=== PATIENT | female | born 1960 | race Caucasian/White ===

== ENCOUNTER 2021-05-05 17:30 | Inpatient (IN) | payer MEDICARE, MEDICAID ==
[2021-05-05] MEDS ORDERED: Glucose Gel 15 GM in 37.5 GM Tube PO PRN (17:40)
[2021-05-05] MEDS ORDERED: Sodium Chloride 0.9% 10 ML Syringe FLUSH PRN (17:40)
[2021-05-05] MEDS ORDERED: Polyethylene Glycol 3350 Powder 17 GM Packet PO PRN (17:40)
[2021-05-05] MEDS ORDERED: 50% Dextrose in Water 50 ML Syringe IV PRN (17:40)
[2021-05-05] MEDS ORDERED: Acetaminophen 325 MG Tab PO PRN (17:40)
[2021-05-05] MEDS ORDERED: Ondansetron 4 MG/2 ML SDV IV PRN (17:40)
[2021-05-05] MEDS ORDERED: Furosemide 40 MG/4 ML VIAL IVPUSH ONE (17:45)
--- NOTE | 2021-05-05 17:49 | PCM.HP.2 ---
H&P History of Present Illness - General Date of Service: 05/05/21 Admit Problem/Dx: Admission Diagnosis/Problem Admission Diagnosis/Problem CHF, Congestive heart failure Source of Information: Patient, Provider, RN Notes Reviewed History Limitations: Reports: No Limitations - History of Present Illness Initial Comments - Free Text/Narative: Ms. Butler is a 61-year-old woman who was admitted as a direct admission from the emergency department at the [facility] with shortness of breath and hypoxia secondary to congestive heart failure exacerbation. She has a very complicated past medical history and is status post recent non-ST segment elevation myocardial infarction 1 month ago, requiring angioplasty and stent placement. She is on aspirin and Plavix following that intervention. Over the past 2 days has developed progressive increase shortness of breath on evaluation in the emergency department chest x-ray shows evidence of pulmonary edema. She has known congestive heart failure with decreased ejection fraction estimated at 35%. She was also found to be very anemic with a hemoglobin of 6.3. She denies recent hematemesis, melena, hematochezia, and hematuria. Guaiac was obtained while in the emergency department and found to be negative. White blood cell count is within normal range and her troponin was normal. In addition to progressive shortness of breath she reports symptoms of PND and orthopnea. She has known longstanding type 2 diabetes mellitus and is status post bilateral [id number] amputations done for nonhealing ulcers with underlying peripheral arterial disease. She was transfused 2 units of red blood cells from the emergency department in [place]. She continues to report symptoms of shortness of breath. D-dimer was obtained while in the emergency department and was found to be elevated. She is not a candidate for CT scan with contrast because of her chronic kidney disease. Left Chest Pain Score (Numeric/FACES): 8 - Related Data Allergies/Adverse Reactions: Allergies Allergy/AdvReac Type Severity Reaction Status Date / Time bee venom protein (honey bee) Allergy Wheezing Verified 05/05/21 18:14 latex Allergy Wheezing Verified 05/05/21 18:14 peanut Allergy Wheezing Verified 05/05/21 18:14 Home Medications: Home Meds Acetaminophen [Tylenol Extra Strength] 1,000 mg PO TID PRN 05/05/21 [History] Albuterol [Ventolin HFA] 2 puff .XX 6XDAY PRN 05/05/21 [History] Albuterol/Ipratropium [DuoNeb 3.0-0.5 MG/3 ML] 3 ml NEB Q6HR PRN 05/05/21 [History] Amitriptyline [Elavil] 20 mg PO BEDTIME 05/05/21 [History] Aspirin [Adult Low Dose Aspirin EC] 81 mg PO DAILY 05/05/21 [History] Budesonide/Formoterol Fumarate [Symbicort 160-4.5 Mcg Inhaler] 2 puff .XX BID 05/05/21 [History] Calcium Carbonate [Tums] 1,000 mg PO ASDIRECTED PRN 05/05/21 [History] Cholecalciferol (Vitamin D3) [Vitamin D3] 10 mcg PO DAILY 05/05/21 [History] Clopidogrel [Plavix] 75 mg PO DAILY 05/05/21 [History] DULoxetine [Cymbalta] 60 mg PO DAILY PRN 05/05/21 [History] Furosemide [Lasix] 20 mg PO DAILY 05/05/21 [History] Gabapentin [Neurontin] 200 mg PO BEDTIME PRN 05/05/21 [History] Insulin Aspart [Novolog Flexpen] 4 unit SUBCUT WITHMEALSANDBED 05/05/21 [History] Insulin Glarg,Human.Rec.Analog [Lantus Solostar] 35 unit SUBCUT BEDTIME 05/05/21 [History] Insulin Glarg,Human.Rec.Analog [Lantus Solostar] 40 unit SUBCUT ACBREAKFAST 05/05/21 [History] Loperamide HCl [Imodium A-D] 4 mg PO DAILY PRN 05/05/21 [History] Metoprolol Succinate [Toprol XL] 12.5 mg PO DAILY 05/05/21 [History] NIFEdipine [Nifedipine ER] 30 mg PO BEDTIME 05/05/21 [History] Pantoprazole Sodium [Protonix] 40 mg PO DAILY PRN 05/05/21 [History] Pentoxifylline [TRENtal] 400 mg PO BID 05/05/21 [History] Sennosides [Senna] 8.6 mg PO BID PRN 05/05/21 [History] Topiramate [Topamax] 25 mg PO DAILY 05/05/21 [History] atorvaSTATin Calcium [Lipitor] 40 mg PO BEDTIME 05/05/21 [History] H&P Review of Systems - Review of Systems: Review Of Systems: See Below General: Reports: Malaise, Weakness, Fatigue. Denies: Fever, Chills HEENT: Reports: No Symptoms Pulmonary: Reports: Shortness of Breath. Denies: Wheezing, Pleuritic Chest Pain, Cough, Sputum, Hemoptysis Cardiovascular: Reports: Dyspnea on Exertion, Orthopnea, PND. Denies: Chest Pain, Palpitations, Edema, Lightheadedness Gastrointestinal: Reports: No Symptoms Genitourinary: Reports: No Symptoms Musculoskeletal: Reports: No Symptoms Skin: Reports: No Symptoms Psychiatric: Reports: No Symptoms Neurological: Reports: No Symptoms Hematologic/Lymphatic: Reports: No Symptoms Immunologic: Reports: No Symptoms Exam - Exam Exam: See Below - Vital Signs Vital Signs: Last Vital Signs Temp 98.7 F 05/05/21 17:36 Pulse 96 05/05/21 17:36 Resp 16 05/05/21 17:36 BP 126/74 05/05/21 17:36 Pulse Ox 91 L 05/05/21 17:36 - Exam Quality Assessment: Supplemental Oxygen, Urinary Catheter, DVT Prophylaxis General: Alert, Oriented, Cooperative, Moderate Distress HEENT: Conjunctiva Clear, Hearing Intact, Mucosa Moist & [place], Normal Nasal Septum, Posterior Pharynx Clear, Pupils Equal Neck: Supple, Trachea Midline, +2 Carotid Pulse wo Bruit Lungs: Decreased Breath Sounds, Rales. No: Crackles, Rhonchi, Wheezing Cardiovascular: Regular Rate, Regular Rhythm, Normal S1, Normal S2. No: Systolic Murmur, Diastolic Murmur GI/Abdominal Exam: Soft, Non-Tender, No Organomegaly, No Distention Extremities: Other (Bilateral [id number] amputations) Skin: Warm, Dry, Intact Neurological: Cranial Nerves Intact, Strength Equal Bilateral, Normal Speech, Normal Tone, Sensation Intact. No: Focal Deficit Neuro Extensive - Mental Status: Alert, Oriented x3, Normal Mood/Affect, Normal Cognition, Memory Intact Sepsis Event Note - Focused Exam Vital Signs: Vital Signs Temp Pulse Resp BP Pulse Ox 05/05/21 17:36 98.7 F 96 16 126/74 91 L *Q Meaningful Use (ADM) - VTE *Q VTE Mechanical Contraindications *Q: Bilateral Lower Amputee VTE Pharmacological Contraindications *Q: High INR Value - VTE Risk Assess *Q Each Risk Factor Represents 1 Point: Age 41 - 59 years, Congestive heart failure (CHF), Serious lung disease including pneumonia, Abnormal Pulmonary Function (COPD) Total Score 1 Point Risk Factors: 4 Each Risk Factor Represents 2 Points: None Total Score 2 Point Risk Factors: 0 Each Risk Factor Represents 3 Points: None Total Score 3 Point Risk Factors: 0 Each Risk Factor Represents 5 Points: None Total Score 5 Point Risk Factors: 0 Venous Thromboembolism Risk Factor Score *Q: 4 Problem List Initiated/Reviewed/Updated: Yes Orders Last 24hrs: Active Orders 24 hr Category Date Time Status Patient Status [ADT] Routine ADT 05/05/21 17:40 Ordered Communication Order [RC] STAT Care 05/05/21 17:40 Ordered Diabetes Education [RC] Click to Edit Care 05/05/21 17:40 Ordered Height and Weight [RC] DAILY Care 05/05/21 17:40 Ordered Intake and Output [RC] QSHIFT Care 05/05/21 17:40 Ordered Notify Provider Vital Signs [RC] ASDIRECTED Care 05/05/21 17:40 Ordered Notify Provider [RC] PRN Care 05/05/21 17:40 Ordered Oxygen Therapy [RC] PRN Care 05/05/21 17:40 Ordered RT Aerosol Therapy [RC] ASDIRECTED Care 05/05/21 17:44 Ordered Up With Assistance [RC] ASDIRECTED Care 05/05/21 17:40 Ordered Up to Chair [RC] QID Care 05/05/21 17:40 Ordered VTE/DVT Education [RC] Per Unit Routine Care 05/05/21 17:40 Ordered Vital Signs [RC] Q4H Care 05/05/21 17:40 Ordered 2 Gram Sodium Diet [DIET] Diet 05/05/21 Dinner Ordered CBC WITH AUTO DIFF [HEME] AM Lab 05/06/21 05:11 Ordered CBC WITH AUTO DIFF [HEME] Stat Lab 05/05/21 17:48 Ordered COMPREHENSIVE METABOLIC PN,CMP [CHEM] AM Lab 05/06/21 05:11 Ordered FOLIC ACID [CHEM] Routine Lab 05/05/21 17:46 Ordered GLUCOSE POC LAB TO COLLECT JPM [POC] QIDACANDBED Lab 05/05/21 21:00 Ordered GLUCOSE POC LAB TO COLLECT JPM [POC] QIDACANDBED Lab 05/06/21 07:30 Ordered GLUCOSE POC LAB TO COLLECT JPM [POC] QIDACANDBED Lab 05/06/21 11:30 Ordered GLUCOSE POC LAB TO COLLECT JPM [POC] QIDACANDBED Lab 05/06/21 16:30 Ordered GLUCOSE POC LAB TO COLLECT JPM [POC] QIDACANDBED Lab 05/06/21 21:00 Ordered GLUCOSE POC LAB TO COLLECT JPM [POC] QIDACANDBED Lab 05/07/21 07:30 Ordered GLUCOSE POC LAB TO COLLECT JPM [POC] QIDACANDBED Lab 05/07/21 11:30 Ordered GLUCOSE POC LAB TO COLLECT JPM [POC] QIDACANDBED Lab 05/07/21 16:30 Ordered GLUCOSE POC LAB TO COLLECT JPM [POC] QIDACANDBED Lab 05/07/21 21:00 Ordered GLUCOSE POC LAB TO COLLECT JPM [POC] QIDACANDBED Lab 05/08/21 07:30 Ordered GLUCOSE POC LAB TO COLLECT JPM [POC] QIDACANDBED Lab 05/08/21 11:30 Ordered GLUCOSE POC LAB TO COLLECT JPM [POC] QIDACANDBED Lab 05/08/21 16:30 Ordered GLUCOSE POC LAB TO COLLECT JPM [POC] QIDACANDBED Lab 05/08/21 21:00 Ordered GLUCOSE POC LAB TO COLLECT JPM [POC] QIDACANDBED Lab 05/09/21 07:30 Ordered GLUCOSE POC LAB TO COLLECT JPM [POC] QIDACANDBED Lab 05/09/21 11:30 Ordered GLUCOSE POC LAB TO COLLECT JPM [POC] QIDACANDBED Lab 05/09/21 16:30 Ordered GLUCOSE POC LAB TO COLLECT JPM [POC] QIDACANDBED Lab 05/09/21 21:00 Ordered GLUCOSE POC LAB TO COLLECT JPM [POC] QIDACANDBED Lab 05/10/21 07:30 Ordered GLUCOSE POC LAB TO COLLECT JPM [POC] QIDACANDBED Lab 05/10/21 11:30 Ordered GLUCOSE POC LAB TO COLLECT JPM [POC] QIDACANDBED Lab 05/10/21 16:30 Ordered GLUCOSE POC LAB TO COLLECT JPM [POC] QIDACANDBED Lab 05/10/21 21:00 Ordered GLUCOSE POC LAB TO COLLECT JPM [POC] QIDACANDBED Lab 05/11/21 07:30 Ordered GLUCOSE POC LAB TO COLLECT JPM [POC] QIDACANDBED Lab 05/11/21 11:30 Ordered GLUCOSE POC LAB TO COLLECT JPM [POC] QIDACANDBED Lab 05/11/21 16:30 Ordered IRON/TIBC [CHEM] Routine Lab 05/05/21 17:46 Ordered LACTATE DEHYDROGENASE,LDH [CHEM] Routine Lab 05/05/21 17:46 Ordered MAGNESIUM [CHEM] AM Lab 05/06/21 05:11 Ordered RETICULOCYTE COUNT [HEME] Routine Lab 05/05/21 17:46 Ordered VITAMIN B12 [CHEM] Routine Lab 05/05/21 17:46 Ordered Acetaminophen [TylenoL] Med 05/05/21 17:40 Ordered 650 mg PO Q4H PRN Albuterol [Proventil Neb Soln] Med 05/05/21 17:40 Ordered 2.5 mg NEB Q4H PRN Albuterol/Ipratropium [DuoNeb 3.0-0.5 MG/3 ML] Med 05/05/21 22:00 Ordered 3 ml NEB QID Dextrose 50% in Water Med 05/05/21 17:40 Ordered 50 ml IV ONETIME PRN Dextrose [Glutose 15] Med 05/05/21 17:40 Ordered 15 gm PO ONETIME PRN Furosemide [Lasix] Med 05/05/21 17:45 Once 80 mg IVPUSH NOW ONE Insulin Lispro [HumaLOG] Med 05/05/21 20:00 Ordered See Protocol SUBCUT QIDACANDBED Ondansetron [Zofran] Med 05/05/21 17:40 Ordered 4 mg IV Q4H PRN Sodium Chloride 0.9% [Saline Flush] Med 05/05/21 17:40 Ordered 10 ml FLUSH ASDIRECTED PRN polyethylene glycoL 3350 [MiraLAX] Med 05/05/21 17:40 Ordered 17 gm PO DAILY PRN Saline Lock Insert [OM.PC] Routine Oth 05/05/21 17:40 Ordered VTE Mechanical Contraindications [AST] Per Unit Routine Oth 05/05/21 17:40 Ordered VTE Pharmacological Contraindications [AST] Per Unit Oth 05/05/21 17:40 Ordered Routine Resuscitation Status Routine Resus Stat 05/05/21 17:40 Ordered Medication Orders Acetaminophen (Acetaminophen 325 Mg Tab) 650 mg PO Q4H PRN PRN Reason: Pain (Mild 1-3)/fever Albuterol (Albuterol 0.083% 2.5 Mg/3 Ml Neb Soln) 2.5 mg NEB Q4H PRN PRN Reason: Shortness Of Breath/wheezing Albuterol/Ipratropium (Albuterol/Ipratropium 3.0-0.5 Mg/3 Ml Neb Soln) 3 ml NEB QID DANI Dextrose (Glucose Gel 15 Gm In 37.5 Gm Tube) 15 gm PO ONETIME PRN PRN Reason: Hypoglycemia Dextrose/Water (50% Dextrose In Water 50 Ml Syringe) 50 ml IV ONETIME PRN PRN Reason: Hypoglycemia Furosemide (Furosemide 40 Mg/4 Ml Vial) 80 mg IVPUSH NOW ONE Stop: 05/05/21 17:46 Insulin Human Lispro (Insulin Lispro 100 Unit/Ml 3 Ml Kwikpen) 0 unit SUBCUT QIDACANDBED [facility]; Protocol Ondansetron HCl (Ondansetron 4 Mg/2 Ml Sdv) 4 mg IV Q4H PRN PRN Reason: Nausea/Vomiting Polyethylene Glycol (Polyethylene Glycol 3350 Powder 17 Gm Packet) 17 gm PO DAILY PRN PRN Reason: Constipation Sodium Chloride (Sodium Chloride 0.9% 10 Ml Syringe) 10 ml FLUSH ASDIRECTED PRN PRN Reason: Keep Vein Open Assessment/Plan Comment:: ASSESSMENT AND PLAN ACUTE ON CHRONIC CONGESTIVE HEART FAILURE-most recently documented ejection fraction of 35%. Evidence of pulmonary edema seen on chest x-ray obtained in the emergency department. -2 g sodium diet -Consider addition of HITESH inhibitor to current therapy -Continue beta-shameka therapy -Furosemide 80 mg IV now SEVERE ANEMIA-she is on anticoagulation with aspirin and Plavix. Denies recent history of obvious blood loss. -Labs pending including iron, iron binding, B12, folic acid, reticulocyte count, and LDH -Recheck hemoglobin now and in a.m. HYPOXIC RESPIRATORY FAILURE-likely secondary to congestive heart failure exacer ino, cannot rule out pulmonary embolism at this time. -Supplemental oxygen as needed TYPE 2 DIABETES MELLITUS -Continue usual dose of long and short acting insulin -4 times daily glucometers -Moderate dose sliding scale Humalog CHRONIC KIDNEY DISEASE STAGE III-Baseline creatinine is unknown at this time -Closely monitor urine output and renal function ELEVATED I-ADUOR-rxtdyh to test further for pulmonary embolism. I think this is less likely a cause of her hypoxia than her documented congestive heart failure. I am reluctant to consider aggressive anticoagulation in light of the fact that she has severe anemia and needs to stay on her aspirin and Plavix because of recent stent placement -VQ scan when available COPD-appears to be well compensated at this time -Continue outpatient medications -Nebulized albuterol and DuoNebs as needed CORONARY ARTERY DISEASE-status post non-ST segment elevation myocardial infarction approximately 1 month ago. Currently denies symptoms of chest pain or pressure, troponin level was within normal range -Continue outpatient medications MAINTENANCE ISSUES -DVT prophylaxis; Lovenox 40 mg subcu daily -GI prophylaxis; continue outpatient PPI therapy -Randall catheter; placed in the emergency department, will leave in at this time for monitoring of urine output -Nutrition; 2 g sodium diet -Nicotine dependence; nicotine patch and nicotine gum CODE STATUS-FULL CODE ADMISSION STATUS-patient will be admitted to inpatient status, expect at least a 2 night hospital stay for evaluation and management of problems as outlined above. At the time of this admission I do not reasonably expected evaluation and management of this problem will require more than a 96 hour hospital stay. DISPOSITION-anticipate discharge to home after the hospital stay. - Mortality Measure Prognosis:: Poor
[2021-05-05] MEDS ORDERED: Pantoprazole 40 MG Tab.CR PO PRN (18:26)
[2021-05-05] MEDS ORDERED: DULoxetine 30 MG Cap PO PRN (18:26)
[2021-05-05] MEDS ORDERED: Sennosides 8.6 MG Tab PO PRN (18:26)
[2021-05-05] MEDS ORDERED: 50% Dextrose in Water 50 ML Syringe IVPUSH PRN (18:26)
[2021-05-05] MEDS ORDERED: Glucagon,Human Recombinant 1 MG Vial IM PRN (18:26)
[2021-05-05] MEDS ORDERED: Nicotine Polacrilex 2 MG Gum CHEW PRN (18:46)
[2021-05-05] MEDS ORDERED: Enoxaparin 40 MG/0.4 ML Syringe SUBCUT SCH (19:00)
[2021-05-05] MEDS: Albuterol 0.083% 2.5 MG/3 ML Neb Soln NEB PRN (19:01)
[2021-05-05] MEDS: Nicotine 14 MG/24 Hr Patch TRDERM SCH (20:11)
[2021-05-05] MEDS: Amitriptyline 10 MG Tab PO SCH (20:13)
[2021-05-05] MEDS: atorvaSTATin 20 MG Tab PO SCH (20:14)
[2021-05-05] MEDS: Pentoxifylline 400 MG Tab.ER PO SCH (20:14)
[2021-05-05] MEDS: Gabapentin 100 MG Cap PO PRN (20:15)
[2021-05-05] MEDS: Albuterol/Ipratropium 3.0-0.5 MG/3 ML Neb Soln NEB SCH (20:17)
[2021-05-05] MEDS: NIFEdipine 30 MG Tab.ER PO SCH (20:23)
[2021-05-05] MEDS ORDERED: Formoterol/Mometasone 200-5 MCG 8.8 GM Inhaler IH SCH (21:00)
[2021-05-05] MEDS: Insulin Lispro 100 Unit/ML 3 ML KwikPen SUBCUT SCH ×2 (21:12→21:13)
[2021-05-05] MEDS: Insulin Glargine,Human Rec. Analog 100 Units/ML 3 ML Pen SUBCUT SCH (21:14)
[2021-05-06] MEDS: Albuterol/Ipratropium 3.0-0.5 MG/3 ML Neb Soln NEB SCH ×5 (06:59→20:21)
[2021-05-06] MEDS: Insulin Lispro 100 Unit/ML 3 ML KwikPen SUBCUT SCH ×8 (07:48→21:33)
[2021-05-06] MEDS: Insulin Glargine,Human Rec. Analog 100 Units/ML 3 ML Pen SUBCUT SCH ×2 (07:50→21:32)
[2021-05-06] MEDS ORDERED: Potassium Chloride 20 MEQ Tab.ER PO ONE ×2 (08:30→17:00)
[2021-05-06] MEDS: Formoterol/Mometasone 200-5 MCG 8.8 GM Inhaler IH SCH ×2 (09:37→20:21)
[2021-05-06] MEDS: Metoprolol Succinate 25 MG Tab.ER PO SCH (09:37)
[2021-05-06] MEDS: Clopidogrel 75 MG Tab PO SCH (09:38)
[2021-05-06] MEDS: Nicotine 14 MG/24 Hr Patch TRDERM SCH (09:38)
[2021-05-06] MEDS: Pentoxifylline 400 MG Tab.ER PO SCH ×2 (09:38→20:21)
[2021-05-06] MEDS: Topiramate 25 MG Tab PO SCH (09:38)
[2021-05-06] MEDS: Aspirin 81 MG Tab.EC PO SCH (09:39)
[2021-05-06] MEDS ORDERED: Sodium Ferric Gluconate Cmplex 250 MG in Sodium Chloride 0.9% 100 ML IV ONE (10:00)
[2021-05-06] MEDS ORDERED: Furosemide 40 MG/4 ML VIAL IVPUSH ONE ×2 (10:45→21:00)
--- NOTE | 2021-05-06 10:54 | PCM.PN ---
- General Info Date of Service: 05/06/21 Subjective Update: Ms. Butler has improved since admission with less shortness of breath. She did have adequate diuresis last night and through the morning and subjectively reports less shortness of breath with less hypoxia. Functional Status: Reports: Tolerating Diet - Review of Systems General: Reports: Weakness, Fatigue. Denies: Fever, Chills Pulmonary: Reports: Shortness of Breath. Denies: Pleuritic Chest Pain, Cough, Sputum, Hemoptysis, Wheezing Cardiovascular: Reports: Dyspnea on Exertion. Denies: Chest Pain, Palpitations, Orthopnea, PND, Edema, Lightheadedness Gastrointestinal: Reports: No Symptoms Genitourinary: Reports: No Symptoms - Patient Data Vitals - Most Recent: Last Vital Signs Temp 97.9 F 05/06/21 07:55 Pulse 91 05/06/21 09:37 Resp 16 05/06/21 07:55 BP 128/60 05/06/21 09:37 Pulse Ox 99 05/06/21 07:55 Weight - Most Recent: 141 lb I&O - Last 24 Hours: Intake & Output 05/05/21 05/06/21 05/06/21 22:59 06:59 14:59 Intake Total 300 480 Output Total 975 400 Balance -975 -100 480 Lab Results Last 24 Hours: Laboratory Results - last 24 hr 05/05/21 05/05/21 05/05/21 Range/Units 18:15 18:15 18:15 WBC 12.0 H (4.5-11.0) K/uL RBC 3.46 (3.30-5.50) M/uL Hgb 9.7 L (12.0-15.0) g/dL Hct 30.5 L (36.0-48.0) % MCV 88 (80-98) fL MCH 28 (27-31) pg MCHC 32 (32-36) % Plt Count 381 (150-400) K/uL Neut % (Auto) 64.8 (36-66) % Lymph % (Auto) 27.0 (24-44) % Smyth % (Auto) 6.2 H (2-6) % Eos % (Auto) 1.6 L (2-4) % Baso % (Auto) 0.4 (0-1) % Percent Retic 4.1 H (0.5-1.5) % Sodium (140-148) mmol/L Potassium (3.6-5.2) mmol/L Chloride (100-108) mmol/L Carbon Dioxide (21-32) mmol/L Anion Gap (5.0-14.0) mmol/L BUN (7-18) mg/dL Creatinine (0.6-1.0) mg/dL Est Cr Clr Drug Dosing Estimated GFR (MDRD) (>60) Glucose (74-106) mg/dL POC Glucose (74-106) mg/dL Calcium (8.5-10.1) mg/dL Magnesium (1.8-2.4) mg/dL Iron (50-170) ug/dL TIBC (250-450) ug/dl % Saturation (20-55) % Total Bilirubin (0.2-1.0) mg/dL AST (15-37) U/L ALT (12-78) U/L Alkaline Phosphatase (46-116) U/L Lactate Dehydrogenase 233 (82-234) U/L Total Protein (6.4-8.2) g/dL Albumin (3.4-5.0) g/dL Globulin (2.3-3.5) g/dL Albumin/Globulin Ratio (1.2-2.2) Vitamin B12 632 (193-986) pg/ml Folate 17.7 (8.6-58.9) ng/ml 05/05/21 05/05/21 05/06/21 Range/Units 18:15 20:59 04:27 WBC 11.5 H (4.5-11.0) K/uL RBC 3.19 L (3.30-5.50) M/uL Hgb 8.7 L (12.0-15.0) g/dL Hct 27.6 L (36.0-48.0) % MCV 87 (80-98) fL MCH 27 (27-31) pg MCHC 32 (32-36) % Plt Count 352 (150-400) K/uL Neut % (Auto) 65.5 (36-66) % Lymph % (Auto) 24.0 (24-44) % Smyth % (Auto) 7.9 H (2-6) % Eos % (Auto) 2.3 (2-4) % Baso % (Auto) 0.3 (0-1) % Percent Retic (0.5-1.5) % Sodium (140-148) mmol/L Potassium (3.6-5.2) mmol/L Chloride (100-108) mmol/L Carbon Dioxide (21-32) mmol/L Anion Gap (5.0-14.0) mmol/L BUN (7-18) mg/dL Creatinine (0.6-1.0) mg/dL Est Cr Clr Drug Dosing Estimated GFR (MDRD) (>60) Glucose (74-106) mg/dL POC Glucose 176 H (74-106) mg/dL Calcium (8.5-10.1) mg/dL Magnesium (1.8-2.4) mg/dL Iron 40 L (50-170) ug/dL TIBC 381 (250-450) ug/dl % Saturation 10 L (20-55) % Total Bilirubin (0.2-1.0) mg/dL AST (15-37) U/L ALT (12-78) U/L Alkaline Phosphatase (46-116) U/L Lactate Dehydrogenase (82-234) U/L Total Protein (6.4-8.2) g/dL Albumin (3.4-5.0) g/dL Globulin (2.3-3.5) g/dL Albumin/Globulin Ratio (1.2-2.2) Vitamin B12 (193-986) pg/ml Folate (8.6-58.9) ng/ml 05/06/21 05/06/21 Range/Units 04:27 07:38 WBC (4.5-11.0) K/uL RBC (3.30-5.50) M/uL Hgb (12.0-15.0) g/dL Hct (36.0-48.0) % MCV (80-98) fL MCH (27-31) pg MCHC (32-36) % Plt Count (150-400) K/uL Neut % (Auto) (36-66) % Lymph % (Auto) (24-44) % Smyth % (Auto) (2-6) % Eos % (Auto) (2-4) % Baso % (Auto) (0-1) % Percent Retic (0.5-1.5) % Sodium 137 L (140-148) mmol/L Potassium 3.3 L (3.6-5.2) mmol/L Chloride 102 (100-108) mmol/L Carbon Dioxide 20 L (21-32) mmol/L Anion Gap 18.3 H (5.0-14.0) mmol/L BUN 37 H (7-18) mg/dL Creatinine 1.7 H (0.6-1.0) mg/dL Est Cr Clr Drug Dosing TNP Estimated GFR (MDRD) 31 L (>60) Glucose 125 H (74-106) mg/dL POC Glucose 145 H (74-106) mg/dL Calcium 8.3 L (8.5-10.1) mg/dL Magnesium 1.9 (1.8-2.4) mg/dL Iron (50-170) ug/dL TIBC (250-450) ug/dl % Saturation (20-55) % Total Bilirubin 0.7 (0.2-1.0) mg/dL AST 9 L (15-37) U/L ALT 14 (12-78) U/L Alkaline Phosphatase 71 (46-116) U/L Lactate Dehydrogenase (82-234) U/L Total Protein 6.4 (6.4-8.2) g/dL Albumin 2.6 L (3.4-5.0) g/dL Globulin 3.8 H (2.3-3.5) g/dL Albumin/Globulin Ratio 0.7 L (1.2-2.2) Vitamin B12 (193-986) pg/ml Folate (8.6-58.9) ng/ml Med Orders - Current: Current Medications Acetaminophen (Acetaminophen 325 Mg Tab) 650 mg PO Q4H PRN PRN Reason: Pain (Mild 1-3)/fever Last Admin: 05/05/21 23:03 Dose: 650 mg Documented by: Albuterol (Albuterol 0.083% 2.5 Mg/3 Ml Neb Soln) 2.5 mg NEB Q4H PRN PRN Reason: Shortness Of Breath/wheezing Last Admin: 05/05/21 19:01 Dose: 2.5 mg Documented by: Albuterol/Ipratropium (Albuterol/Ipratropium 3.0-0.5 Mg/3 Ml Neb Soln) 3 ml NEB QIDRT [facility] Last Admin: 05/06/21 06:59 Dose: 3 ml Documented by: Amitriptyline HCl (Amitriptyline 10 Mg Tab) 20 mg PO BEDTIME DANI Last Admin: 05/05/21 20:13 Dose: 20 mg Documented by: Aspirin (Aspirin 81 Mg Tab.Ec) 81 mg PO DAILY DANI Last Admin: 05/06/21 09:39 Dose: 81 mg Documented by: Atorvastatin Calcium (Atorvastatin 20 Mg Tab) 40 mg PO BEDTIME DANI Last Admin: 05/05/21 20:14 Dose: 40 mg Documented by: Clopidogrel Bisulfate (Clopidogrel 75 Mg Tab) 75 mg PO DAILY DANI Last Admin: 05/06/21 09:38 Dose: 75 mg Documented by: Dextrose (Glucose Gel 15 Gm In 37.5 Gm Tube) 15 gm PO ONETIME PRN PRN Reason: Hypoglycemia Dextrose/Water (50% Dextrose In Water 50 Ml Syringe) 50 ml IVPUSH ASDIRECTED PRN PRN Reason: Hypoglycemia Duloxetine HCl (Duloxetine 30 Mg Cap) 60 mg PO DAILY PRN PRN Reason: Pain Enoxaparin Sodium (Enoxaparin 40 Mg/0.4 Ml Syringe) 40 mg SUBCUT Q24H [facility] Furosemide 20 mg/ Furosemide (40 mg) 60 mg IV ONETIME ONE Stop: 05/06/21 10:51 Furosemide (Furosemide 40 Mg/4 Ml Vial) 60 mg IVPUSH NOW ONE Stop: 05/06/21 21:01 Gabapentin (Gabapentin 100 Mg Cap) 200 mg PO BEDTIME PRN PRN Reason: neuropathy Last Admin: 05/05/21 20:15 Dose: 200 mg Documented by: Glucagon (Glucagon,Human Recombinant 1 Mg Vial) 1 mg IM ASDIRECTED PRN PRN Reason: Hypoglycemia Ferric Sodium Gluconate Complex 250 mg/ Sodium Chloride 120 mls @ 30 mls/hr IV ONETIME ONE Stop: 05/06/21 13:59 Insulin Glargine (Insulin Glargine,Human Rec. Analog 100 Units/Ml 3 Ml Pen) 35 units SUBCUT BEDTIME DANI Last Admin: 05/05/21 21:14 Dose: 35 units Documented by: Insulin Glargine (Insulin Glargine,Human Rec. Analog 100 Units/Ml 3 Ml Pen) 40 units SUBCUT ACBREAKFAST DANI Last Admin: 05/06/21 07:50 Dose: 40 units Documented by: Insulin Human Lispro (Insulin Lispro 100 Unit/Ml 3 Ml Kwikpen) 0 unit SUBCUT QIDACANDBED [facility]; Protocol Last Admin: 05/06/21 07:48 Dose: Not Given Documented by: Insulin Human Lispro (Insulin Lispro 100 Unit/Ml 3 Ml Kwikpen) 4 unit SUBCUT WITHMEALSANDBED [facility] Last Admin: 05/06/21 07:51 Dose: 4 units Documented by: Metoprolol Succinate (Metoprolol Succinate 25 Mg Tab.Er) 12.5 mg PO DAILY [facility] Last Admin: 05/06/21 09:37 Dose: 12.5 mg Documented by: Mometasone Furoate/Formoterol Fumar (Formoterol/Mometasone 200-5 Mcg 8.8 Gm Inhaler) 0 puff IH BIDRT [facility] Last Admin: 05/06/21 09:37 Dose: 2 inhaler Documented by: Nicotine (Nicotine 14 Mg/24 Hr Patch) 14 mg TRDERM DAILY [facility] Last Admin: 05/06/21 09:38 Dose: 14 mg Documented by: Nicotine Polacrilex (Nicotine Polacrilex 2 Mg Gum) 2 mg CHEW Q1H PRN PRN Reason: Other Nifedipine (Nifedipine 30 Mg Tab.Er) 30 mg PO BEDTIME [facility] Last Admin: 05/05/21 20:23 Dose: Not Given Documented by: Ondansetron HCl (Ondansetron 4 Mg/2 Ml Sdv) 4 mg IV Q4H PRN PRN Reason: Nausea/Vomiting Pantoprazole Sodium (Pantoprazole 40 Mg Tab.Cr) 40 mg PO DAILY PRN PRN Reason: Indigestion Pentoxifylline (Pentoxifylline 400 Mg Tab.Er) 400 mg PO BID [facility] Last Admin: 05/06/21 09:38 Dose: 400 mg Documented by: Polyethylene Glycol (Polyethylene Glycol 3350 Powder 17 Gm Packet) 17 gm PO DAILY PRN PRN Reason: Constipation Potassium Chloride (Potassium Chloride 20 Meq Tab.Er) 40 meq PO ONETIME ONE Stop: 05/06/21 17:01 Senna (Sennosides 8.6 Mg Tab) 8.6 mg PO BID PRN PRN Reason: Constipation Sodium Chloride (Sodium Chloride 0.9% 10 Ml Syringe) 10 ml FLUSH ASDIRECTED PRN PRN Reason: Keep Vein Open Topiramate (Topiramate 25 Mg Tab) 25 mg PO DAILY [facility] Last Admin: 05/06/21 09:38 Dose: 25 mg Documented by: Discontinued Medications Dextrose/Water (50% Dextrose In Water 50 Ml Syringe) 50 ml IV ONETIME PRN PRN Reason: Hypoglycemia Enoxaparin Sodium (Enoxaparin 40 Mg/0.4 Ml Syringe) 40 mg SUBCUT DAILY [facility] Last Admin: 05/05/21 20:11 Dose: 40 mg Documented by: Furosemide (Furosemide 40 Mg/4 Ml Vial) 80 mg IVPUSH NOW ONE Stop: 05/05/21 17:46 Last Admin: 05/05/21 18:49 Dose: 80 mg Documented by: Mometasone Furoate/Formoterol Fumar (Formoterol/Mometasone 200-5 Mcg 8.8 Gm Inhaler) 0 puff IH BID [facility] Last Admin: 05/05/21 20:12 Dose: 2 puff Documented by: Potassium Chloride (Potassium Chloride 20 Meq Tab.Er) 40 meq PO ONETIME ONE Stop: 05/06/21 08:31 Last Admin: 05/06/21 09:43 Dose: 40 meq Documented by: - Exam Quality Assessment: Supplemental Oxygen, Urine Catheter, DVT Prophylaxis General: Alert, Oriented, Cooperative, Mild Distress Lungs: Clear to Auscultation, Normal Respiratory Effort, Decreased Breath Sounds Cardiovascular: Regular Rate, Regular Rhythm, No Murmurs GI/Abdominal Exam: Soft, Non-Tender, No Organomegaly, No Distention Extremities: Other (Bilateral [id number] amputations) - Patient Data Lab Results Last 24 hrs: Laboratory Results - last 24 hr 05/05/21 05/05/21 05/05/21 Range/Units 18:15 18:15 18:15 WBC 12.0 H (4.5-11.0) K/uL RBC 3.46 (3.30-5.50) M/uL Hgb 9.7 L (12.0-15.0) g/dL Hct 30.5 L (36.0-48.0) % MCV 88 (80-98) fL MCH 28 (27-31) pg MCHC 32 (32-36) % Plt Count 381 (150-400) K/uL Neut % (Auto) 64.8 (36-66) % Lymph % (Auto) 27.0 (24-44) % Smyth % (Auto) 6.2 H (2-6) % Eos % (Auto) 1.6 L (2-4) % Baso % (Auto) 0.4 (0-1) % Percent Retic 4.1 H (0.5-1.5) % Sodium (140-148) mmol/L Potassium (3.6-5.2) mmol/L Chloride (100-108) mmol/L Carbon Dioxide (21-32) mmol/L Anion Gap (5.0-14.0) mmol/L BUN (7-18) mg/dL Creatinine (0.6-1.0) mg/dL Est Cr Clr Drug Dosing Estimated GFR (MDRD) (>60) Glucose (74-106) mg/dL POC Glucose (74-106) mg/dL Calcium (8.5-10.1) mg/dL Magnesium (1.8-2.4) mg/dL Iron (50-170) ug/dL TIBC (250-450) ug/dl % Saturation (20-55) % Total Bilirubin (0.2-1.0) mg/dL AST (15-37) U/L ALT (12-78) U/L Alkaline Phosphatase (46-116) U/L Lactate Dehydrogenase 233 (82-234) U/L Total Protein (6.4-8.2) g/dL Albumin (3.4-5.0) g/dL Globulin (2.3-3.5) g/dL Albumin/Globulin Ratio (1.2-2.2) Vitamin B12 632 (193-986) pg/ml Folate 17.7 (8.6-58.9) ng/ml 05/05/21 05/05/21 05/06/21 Range/Units 18:15 20:59 04:27 WBC 11.5 H (4.5-11.0) K/uL RBC 3.19 L (3.30-5.50) M/uL Hgb 8.7 L (12.0-15.0) g/dL Hct 27.6 L (36.0-48.0) % MCV 87 (80-98) fL MCH 27 (27-31) pg MCHC 32 (32-36) % Plt Count 352 (150-400) K/uL Neut % (Auto) 65.5 (36-66) % Lymph % (Auto) 24.0 (24-44) % Smyth % (Auto) 7.9 H (2-6) % Eos % (Auto) 2.3 (2-4) % Baso % (Auto) 0.3 (0-1) % Percent Retic (0.5-1.5) % Sodium (140-148) mmol/L Potassium (3.6-5.2) mmol/L Chloride (100-108) mmol/L Carbon Dioxide (21-32) mmol/L Anion Gap (5.0-14.0) mmol/L BUN (7-18) mg/dL Creatinine (0.6-1.0) mg/dL Est Cr Clr Drug Dosing Estimated GFR (MDRD) (>60) Glucose (74-106) mg/dL POC Glucose 176 H (74-106) mg/dL Calcium (8.5-10.1) mg/dL Magnesium (1.8-2.4) mg/dL Iron 40 L (50-170) ug/dL TIBC 381 (250-450) ug/dl % Saturation 10 L (20-55) % Total Bilirubin (0.2-1.0) mg/dL AST (15-37) U/L ALT (12-78) U/L Alkaline Phosphatase (46-116) U/L Lactate Dehydrogenase (82-234) U/L Total Protein (6.4-8.2) g/dL Albumin (3.4-5.0) g/dL Globulin (2.3-3.5) g/dL Albumin/Globulin Ratio (1.2-2.2) Vitamin B12 (193-986) pg/ml Folate (8.6-58.9) ng/ml 05/06/21 05/06/21 Range/Units 04:27 07:38 WBC (4.5-11.0) K/uL RBC (3.30-5.50) M/uL Hgb (12.0-15.0) g/dL Hct (36.0-48.0) % MCV (80-98) fL MCH (27-31) pg MCHC (32-36) % Plt Count (150-400) K/uL Neut % (Auto) (36-66) % Lymph % (Auto) (24-44) % Smyth % (Auto) (2-6) % Eos % (Auto) (2-4) % Baso % (Auto) (0-1) % Percent Retic (0.5-1.5) % Sodium 137 L (140-148) mmol/L Potassium 3.3 L (3.6-5.2) mmol/L Chloride 102 (100-108) mmol/L Carbon Dioxide 20 L (21-32) mmol/L Anion Gap 18.3 H (5.0-14.0) mmol/L BUN 37 H (7-18) mg/dL Creatinine 1.7 H (0.6-1.0) mg/dL Est Cr Clr Drug Dosing TNP Estimated GFR (MDRD) 31 L (>60) Glucose 125 H (74-106) mg/dL POC Glucose 145 H (74-106) mg/dL Calcium 8.3 L (8.5-10.1) mg/dL Magnesium 1.9 (1.8-2.4) mg/dL Iron (50-170) ug/dL TIBC (250-450) ug/dl % Saturation (20-55) % Total Bilirubin 0.7 (0.2-1.0) mg/dL AST 9 L (15-37) U/L ALT 14 (12-78) U/L Alkaline Phosphatase 71 (46-116) U/L Lactate Dehydrogenase (82-234) U/L Total Protein 6.4 (6.4-8.2) g/dL Albumin 2.6 L (3.4-5.0) g/dL Globulin 3.8 H (2.3-3.5) g/dL Albumin/Globulin Ratio 0.7 L (1.2-2.2) Vitamin B12 (193-986) pg/ml Folate (8.6-58.9) ng/ml Result Diagrams: 05/06/21 04:27 05/06/21 04:27 Sepsis Event Note - Evaluation Sepsis Screening Result: Possible Sepsis Risk - Focused Exam Vital Signs: Vital Signs Temp Temp Pulse Pulse Resp BP BP 05/06/21 09:37 91 128/60 05/06/21 07:55 97.9 F 91 16 128/60 05/06/21 07:00 84 05/06/21 04:31 96.9 F 82 16 112/57 L 05/05/21 23:33 97.5 F 05/05/21 23:03 100.2 F 05/05/21 23:00 100.2 F 105 H 18 138/63 Pulse Ox 05/06/21 09:37 05/06/21 07:55 99 05/06/21 07:00 05/06/21 04:31 96 05/05/21 23:33 05/05/21 23:03 05/05/21 23:00 95 - Problem List Review Problem List Initiated/Reviewed/Updated: Yes - My Orders Last 24 Hours: My Active Orders 05/05/21 Dinner 2 Gram Sodium Diet [DIET] 05/05/21 17:40 Patient Status [ADT] Routine Communication Order [RC] STAT Diabetes Education [RC] Click to Edit Height and Weight [RC] 0500 Intake and Output [RC] QSHIFT Notify Provider Vital Signs [RC] ASDIRECTED Notify Provider [RC] PRN Oxygen Therapy [RC] PRN Up With Assistance [RC] ASDIRECTED Up to Chair [RC] QID VTE/DVT Education [RC] Per Unit Routine Vital Signs [RC] Q4H Acetaminophen [TylenoL] 650 mg PO Q4H PRN Albuterol [Proventil Neb Soln] 2.5 mg NEB Q4H PRN Dextrose [Glutose 15] 15 gm PO ONETIME PRN Ondansetron [Zofran] 4 mg IV Q4H PRN Sodium Chloride 0.9% [Saline Flush] 10 ml FLUSH ASDIRECTED PRN polyethylene glycoL 3350 [MiraLAX] 17 gm PO DAILY PRN Saline Lock Insert [OM.PC] Routine VTE Mechanical Contraindications [AST] Per Unit Routine VTE Pharmacological Contraindications [AST] Per Unit Routine Resuscitation Status Routine 05/05/21 17:44 RT Aerosol Therapy [RC] ASDIRECTED 05/05/21 18:26 DULoxetine [Cymbalta] 60 mg PO DAILY PRN Dextrose 50% in Water 50 ml IVPUSH ASDIRECTED PRN Gabapentin [Neurontin] 200 mg PO BEDTIME PRN Glucagon,Human Recombinant [GlucaGen] 1 mg IM ASDIRECTED PRN Pantoprazole [ProTONIX] 40 mg PO DAILY PRN Sennosides [Senna] 8.6 mg PO BID PRN 05/05/21 18:46 Nicotine Polacrilex [Nicorelief] 2 mg CHEW Q1H PRN 05/05/21 19:00 Nicotine [Habitrol] 14 mg TRDERM DAILY 05/05/21 20:00 Insulin Lispro [HumaLOG] See Protocol SUBCUT QIDACANDBED 05/05/21 21:00 Albuterol/Ipratropium [DuoNeb 3.0-0.5 MG/3 ML] 3 ml NEB QIDRT Amitriptyline [Elavil] 20 mg PO BEDTIME Insulin Glarg,Human.Rec.Analog [LantUS Solostar] 35 units SUBCUT BEDTIME Insulin Lispro [HumaLOG] 4 unit SUBCUT WITHMEALSANDBED NIFEdipine [Procardia XL] 30 mg PO BEDTIME Pentoxifylline [TRENtal] 400 mg PO BID atorvaSTATin [Lipitor] 40 mg PO BEDTIME 05/05/21 21:55 Urinary Catheter Assessment [RC] ASDIRECTED 05/05/21 22:00 Insert Urinary Catheter [OM.PC] Q24H 05/06/21 07:30 Insulin Glarg,Human.Rec.Analog [LantUS Solostar] 40 units SUBCUT ACBREAKFAST 05/06/21 07:45 Mometasone/Formoterol [Dulera 200-5 MCG] 0 puff IH BIDRT 05/06/21 09:00 Aspirin [Halfprin] 81 mg PO DAILY Clopidogrel [Plavix] 75 mg PO DAILY Metoprolol Succinate [Toprol XL] 12.5 mg PO DAILY Topiramate [Topamax] 25 mg PO DAILY 05/06/21 10:00 Sodium Ferric Gluconate Cmplex [Ferrlecit IV] 250 mg Sodium Chloride 0.9% [Normal Saline] 100 ml IV ONETIME 05/06/21 10:50 Furosemide [Lasix] 60 mg IV ONETIME ONE 05/06/21 11:30 GLUCOSE POC LAB TO COLLECT JPM [POC] QIDACANDBED 05/06/21 16:30 GLUCOSE POC LAB TO COLLECT JPM [POC] QIDACANDBED 05/06/21 17:00 Potassium Chloride [Klor-Con M20] 40 meq PO ONETIME ONE 05/06/21 20:00 Enoxaparin [Lovenox] 40 mg SUBCUT Q24H 05/06/21 21:00 GLUCOSE POC LAB TO COLLECT JPM [POC] QIDACANDBED Furosemide [Lasix] 60 mg IVPUSH NOW ONE 05/07/21 05:00 BASIC METABOLIC PANEL,BMP [CHEM] Timed CBC WITH AUTO DIFF [HEME] Timed 05/07/21 07:30 GLUCOSE POC LAB TO COLLECT JPM [POC] QIDACANDBED 05/07/21 08:00 Lung Vent Perfusion [NM] Urgent 05/07/21 11:30 GLUCOSE POC LAB TO COLLECT JPM [POC] QIDACANDBED 05/07/21 16:30 GLUCOSE POC LAB TO COLLECT JPM [POC] QIDACANDBED 05/07/21 21:00 GLUCOSE POC LAB TO COLLECT JPM [POC] QIDACANDBED 05/08/21 07:30 GLUCOSE POC LAB TO COLLECT JPM [POC] QIDACANDBED 05/08/21 11:30 GLUCOSE POC LAB TO COLLECT JPM [POC] QIDACANDBED 05/08/21 16:30 GLUCOSE POC LAB TO COLLECT JPM [POC] QIDACANDBED 05/08/21 21:00 GLUCOSE POC LAB TO COLLECT JPM [POC] QIDACANDBED 05/09/21 07:30 GLUCOSE POC LAB TO COLLECT JPM [POC] QIDACANDBED 05/09/21 11:30 GLUCOSE POC LAB TO COLLECT JPM [POC] QIDACANDBED 05/09/21 16:30 GLUCOSE POC LAB TO COLLECT JPM [POC] QIDACANDBED 05/09/21 21:00 GLUCOSE POC LAB TO COLLECT JPM [POC] QIDACANDBED 05/10/21 07:30 GLUCOSE POC LAB TO COLLECT JPM [POC] QIDACANDBED 05/10/21 11:30 GLUCOSE POC LAB TO COLLECT JPM [POC] QIDACANDBED 05/10/21 16:30 GLUCOSE POC LAB TO COLLECT JPM [POC] QIDACANDBED 05/10/21 21:00 GLUCOSE POC LAB TO COLLECT JPM [POC] QIDACANDBED 05/11/21 07:30 GLUCOSE POC LAB TO COLLECT JPM [POC] QIDACANDBED 05/11/21 11:30 GLUCOSE POC LAB TO COLLECT JPM [POC] QIDACANDBED 05/11/21 16:30 GLUCOSE POC LAB TO COLLECT JPM [POC] QIDACANDBED - Plan Plan:: ASSESSMENT AND PLAN ACUTE ON CHRONIC CONGESTIVE HEART FAILURE-most recently documented ejection fraction of 35%. Evidence of pulmonary edema seen on chest x-ray obtained in the emergency department. -2 g sodium diet -Consider addition of HITESH inhibitor to current therapy -Continue beta-shameka therapy -Furosemide 60 mg IV twice today SEVERE ANEMIA-she is on anticoagulation with aspirin and Plavix. Denies recent history of obvious blood loss. Hemoglobin significantly improved following transfusion of 2 units of red blood cells. Iron level found to be low and she will receive IV iron -IV iron infusion today -Recheck hemoglobin in a.m. HYPOXIC RESPIRATORY FAILURE-likely secondary to congestive heart failure exacerbation, cannot rule out pulmonary embolism at this time. Hypoxia has improved with diuresis -Supplemental oxygen as needed TYPE 2 DIABETES MELLITUS -Continue usual dose of long and short acting insulin -4 times daily glucometers -Moderate dose sliding scale Humalog CHRONIC KIDNEY DISEASE STAGE III-Baseline creatinine is unknown at this time -Closely monitor urine output and renal function -Obtain recent outpatient labs ELEVATED [id number] to test further for pulmonary embolism. I think this is less likely a cause of her hypoxia than her documented congestive heart failure. I am reluctant to consider aggressive anticoagulation in light of the fact that she has severe anemia and needs to stay on her aspirin and Plavix because of recent stent placement -VQ scan tomorrow COPD-appears to be well compensated at this time -Continue outpatient medications -Nebulized albuterol and DuoNebs as needed CORONARY ARTERY DISEASE-status post non-ST segment elevation myocardial infarction approximately 1 month ago. Currently denies symptoms of chest pain or pressure, troponin level was within normal range -Continue outpatient medications MAINTENANCE ISSUES -DVT prophylaxis; Lovenox 40 mg subcu daily -GI prophylaxis; continue outpatient PPI therapy -Randall catheter; placed in the emergency department, will leave in at this time for monitoring of urine output -Nutrition; 2 g sodium diet -Nicotine dependence; nicotine patch and nicotine gum CODE STATUS-FULL CODE ADMISSION STATUS-patient will be admitted to inpatient status, expect at least a 2 night hospital stay for evaluation and management of problems as outlined above. At the time of this admission I do not reasonably expected evaluation and management of this problem will require more than a 96 hour hospital stay. DISPOSITION-anticipate discharge to home after the hospital stay.
[2021-05-06] MEDS: Gabapentin 100 MG Cap PO SCH (12:44)
[2021-05-06] MEDS: Albuterol 0.083% 2.5 MG/3 ML Neb Soln NEB PRN (12:46)
[2021-05-06] MEDS: atorvaSTATin 20 MG Tab PO SCH (20:21)
[2021-05-06] MEDS: Amitriptyline 10 MG Tab PO SCH (20:21)
[2021-05-06] MEDS: Enoxaparin 40 MG/0.4 ML Syringe SUBCUT SCH (20:22)
[2021-05-06] MEDS: Gabapentin 100 MG Cap PO PRN (20:25)
[2021-05-06] MEDS: NIFEdipine 30 MG Tab.ER PO SCH (20:40)
[2021-05-06] MEDS: Mirtazapine 15 MG Tab PO PRN (21:32)
[2021-05-06] MEDS: Melatonin 3 MG Tab PO PRN (21:32)
[2021-05-06] MEDS: Acetaminophen/HYDROcodone 325-5 MG Tab PO PRN (22:41)
[2021-05-07] MEDS: Formoterol/Mometasone 200-5 MCG 8.8 GM Inhaler IH SCH ×2 (06:58→21:50)
[2021-05-07] MEDS: Albuterol/Ipratropium 3.0-0.5 MG/3 ML Neb Soln NEB SCH ×4 (08:23→22:07)
[2021-05-07] MEDS ORDERED: Furosemide 40 MG/4 ML VIAL IVPUSH ONE ×2 (08:30→20:00)
--- NOTE | 2021-05-07 09:31 | NM ---
QUANTITATIVE LUNG SCAN Clinical History: Lung mass Comparison: None Technique: Multiprojection scintigraphic images of the lungs were obtained following the IV injection of 4.9 mCi of technetium 99m MAA. This is correlated with the ventilation scan following inhalation a 1.0 mCi of technetium 90 9M DTPA Findings: There is some asymmetric distribution of radionuclide on the ventilation scan which is technical. There is mild heterogeneity throughout. No lobar or segmental perfusion defects are identified on the perfusion scan IMPRESSION: No significant ventilation or perfusion defects are identified. Study is felt to represent a low probability of pulmonary embolus.
[2021-05-07] MEDS: Insulin Lispro 100 Unit/ML 3 ML KwikPen SUBCUT SCH ×8 (10:08→21:53)
[2021-05-07] MEDS: Clopidogrel 75 MG Tab PO SCH (10:11)
[2021-05-07] MEDS: Metoprolol Succinate 25 MG Tab.ER PO SCH (10:11)
[2021-05-07] MEDS: Aspirin 81 MG Tab.EC PO SCH (10:11)
[2021-05-07] MEDS: Topiramate 25 MG Tab PO SCH (10:11)
[2021-05-07] MEDS: Gabapentin 100 MG Cap PO SCH (10:11)
[2021-05-07] MEDS: Pentoxifylline 400 MG Tab.ER PO SCH ×2 (10:12→21:56)
[2021-05-07] MEDS: Insulin Glargine,Human Rec. Analog 100 Units/ML 3 ML Pen SUBCUT SCH ×2 (10:15→21:54)
[2021-05-07] MEDS: Nicotine 14 MG/24 Hr Patch TRDERM SCH (10:19)
--- NOTE | 2021-05-07 10:43 | PCM.PN ---
- General Info Date of Service: 05/07/21 Subjective Update: Ms. Butler has remained stable over the last 24 hours. She is off of supplemental oxygen with resolution of her hypoxia. She reports subjectively that shortness of breath has significantly improved. VQ scan was obtained today and shows no evidence of pulmonary emboli. Functional Status: Reports: Tolerating Diet - Review of Systems General: Reports: No Symptoms Pulmonary: Reports: No Symptoms Cardiovascular: Reports: No Symptoms Gastrointestinal: Reports: No Symptoms - Patient Data Vitals - Most Recent: Last Vital Signs Temp 96.1 F L 05/07/21 07:25 Pulse 80 05/07/21 10:11 Resp 18 05/07/21 07:25 BP 118/55 L 05/07/21 10:11 Pulse Ox 99 05/07/21 07:25 Weight - Most Recent: 141 lb I&O - Last 24 Hours: Intake & Output 05/06/21 05/07/21 05/07/21 22:59 06:59 14:59 Intake Total 355 1000 Output Total 1250 500 Balance -895 500 Lab Results Last 24 Hours: Laboratory Results - last 24 hr 05/06/21 05/06/21 05/06/21 Range/Units 11:36 16:23 21:06 WBC (4.5-11.0) K/uL RBC (3.30-5.50) M/uL Hgb (12.0-15.0) g/dL Hct (36.0-48.0) % MCV (80-98) fL MCH (27-31) pg MCHC (32-36) % Plt Count (150-400) K/uL Neut % (Auto) (36-66) % Lymph % (Auto) (24-44) % Haines % (Auto) (2-6) % Eos % (Auto) (2-4) % Baso % (Auto) (0-1) % Sodium (140-148) mmol/L Potassium (3.6-5.2) mmol/L Chloride (100-108) mmol/L Carbon Dioxide (21-32) mmol/L Anion Gap (5.0-14.0) mmol/L BUN (7-18) mg/dL Creatinine (0.6-1.0) mg/dL Est Cr Clr Drug Dosing mL/min Estimated GFR (MDRD) (>60) Glucose (74-106) mg/dL POC Glucose 239 H 145 H 211 H (74-106) mg/dL Calcium (8.5-10.1) mg/dL 05/07/21 05/07/21 05/07/21 Range/Units 04:31 04:31 07:30 WBC 9.8 (4.5-11.0) K/uL RBC 2.96 L (3.30-5.50) M/uL Hgb 8.5 L (12.0-15.0) g/dL Hct 26.6 L (36.0-48.0) % MCV 90 (80-98) fL MCH 29 (27-31) pg MCHC 32 (32-36) % Plt Count 351 (150-400) K/uL Neut % (Auto) 66.2 H (36-66) % Lymph % (Auto) 21.5 L (24-44) % Haines % (Auto) 7.3 H (2-6) % Eos % (Auto) 4.7 H (2-4) % Baso % (Auto) 0.3 (0-1) % Sodium 138 L (140-148) mmol/L Potassium 3.8 (3.6-5.2) mmol/L Chloride 103 (100-108) mmol/L Carbon Dioxide 21 (21-32) mmol/L Anion Gap 17.8 H (5.0-14.0) mmol/L BUN 44 H (7-18) mg/dL Creatinine 1.5 H (0.6-1.0) mg/dL Est Cr Clr Drug Dosing 37.80 mL/min Estimated GFR (MDRD) 36 L (>60) Glucose 113 H (74-106) mg/dL POC Glucose 132 H (74-106) mg/dL Calcium 8.2 L (8.5-10.1) mg/dL Med Orders - Current: Current Medications Acetaminophen (Acetaminophen 325 Mg Tab) 650 mg PO Q4H PRN PRN Reason: Pain (Mild 1-3)/fever Last Admin: 05/05/21 23:03 Dose: 650 mg Documented by: Hydrocodone Bitart/Acetaminophen (Acetaminophen/Hydrocodone 325-5 Mg Tab) 1 - 2 tab PO Q4H PRN PRN Reason: Pain Last Admin: 05/06/21 22:41 Dose: 2 tab Documented by: Albuterol (Albuterol 0.083% 2.5 Mg/3 Ml Neb Soln) 2.5 mg NEB Q4H PRN PRN Reason: Shortness Of Breath/wheezing Last Admin: 05/06/21 12:46 Dose: 2.5 mg Documented by: Albuterol/Ipratropium (Albuterol/Ipratropium 3.0-0.5 Mg/3 Ml Neb Soln) 3 ml NEB QIDRT DANI Last Admin: 05/07/21 08:23 Dose: 3 ml Documented by: Amitriptyline HCl (Amitriptyline 10 Mg Tab) 20 mg PO BEDTIME [facility] Last Admin: 05/06/21 20:21 Dose: 20 mg Documented by: Aspirin (Aspirin 81 Mg Tab.Ec) 81 mg PO DAILY [facility] Last Admin: 05/07/21 10:11 Dose: 81 mg Documented by: Atorvastatin Calcium (Atorvastatin 20 Mg Tab) 40 mg PO BEDTIME DANI Last Admin: 05/06/21 20:21 Dose: 40 mg Documented by: Clopidogrel Bisulfate (Clopidogrel 75 Mg Tab) 75 mg PO DAILY [facility] Last Admin: 05/07/21 10:11 Dose: 75 mg Documented by: Dextrose (Glucose Gel 15 Gm In 37.5 Gm Tube) 15 gm PO ONETIME PRN PRN Reason: Hypoglycemia Dextrose/Water (50% Dextrose In Water 50 Ml Syringe) 50 ml IVPUSH ASDIRECTED PRN PRN Reason: Hypoglycemia Duloxetine HCl (Duloxetine 30 Mg Cap) 60 mg PO DAILY PRN PRN Reason: Pain Enoxaparin Sodium (Enoxaparin 40 Mg/0.4 Ml Syringe) 40 mg SUBCUT Q24H [facility] Last Admin: 05/06/21 20:22 Dose: 40 mg Documented by: Furosemide (Furosemide 40 Mg/4 Ml Vial) 40 mg IVPUSH NOW ONE Stop: 05/07/21 20:01 Furosemide (Furosemide 40 Mg Tab) 40 mg PO DAILY [facility] Gabapentin (Gabapentin 100 Mg Cap) 200 mg PO BEDTIME PRN PRN Reason: neuropathy Last Admin: 05/06/21 20:25 Dose: 200 mg Documented by: Gabapentin (Gabapentin 100 Mg Cap) 100 mg PO DAILY [facility] Last Admin: 05/07/21 10:11 Dose: 100 mg Documented by: Glucagon (Glucagon,Human Recombinant 1 Mg Vial) 1 mg IM ASDIRECTED PRN PRN Reason: Hypoglycemia Insulin Glargine (Insulin Glargine,Human Rec. Analog 100 Units/Ml 3 Ml Pen) 35 units SUBCUT BEDTIME [facility] Last Admin: 05/06/21 21:32 Dose: 35 units Documented by: Insulin Glargine (Insulin Glargine,Human Rec. Analog 100 Units/Ml 3 Ml Pen) 40 units SUBCUT ACBREAKFAST [facility] Last Admin: 05/07/21 10:15 Dose: 40 units Documented by: Insulin Human Lispro (Insulin Lispro 100 Unit/Ml 3 Ml Kwikpen) 0 unit SUBCUT QIDACANDBED [facility]; Protocol Last Admin: 05/07/21 10:08 Dose: Not Given Documented by: Insulin Human Lispro (Insulin Lispro 100 Unit/Ml 3 Ml Kwikpen) 4 unit SUBCUT WITHMEALSANDBED [facility] Last Admin: 05/07/21 10:15 Dose: 4 units Documented by: Lisinopril (Lisinopril 2.5 Mg Tab) 2.5 mg PO DAILY [facility] Melatonin (Melatonin 3 Mg Tab) 6 mg PO BEDTIME PRN PRN Reason: Sleep Last Admin: 05/06/21 21:32 Dose: 6 mg Documented by: Metoprolol Succinate (Metoprolol Succinate 25 Mg Tab.Er) 12.5 mg PO DAILY [facility] Last Admin: 05/07/21 10:11 Dose: 12.5 mg Documented by: Mirtazapine (Mirtazapine 15 Mg Tab) 15 mg PO BEDTIME PRN PRN Reason: Anxiety Last Admin: 05/06/21 21:32 Dose: 15 mg Documented by: Mometasone Furoate/Formoterol Fumar (Formoterol/Mometasone 200-5 Mcg 8.8 Gm Inhaler) 0 puff IH BIDRT [facility] Last Admin: 05/07/21 06:58 Dose: 2 inhalation Documented by: Nicotine (Nicotine 14 Mg/24 Hr Patch) 14 mg TRDERM DAILY [facility] Last Admin: 05/07/21 10:19 Dose: Not Given Documented by: Nicotine Polacrilex (Nicotine Polacrilex 2 Mg Gum) 2 mg CHEW Q1H PRN PRN Reason: Other Nifedipine (Nifedipine 30 Mg Tab.Er) 30 mg PO BEDTIME [facility] Last Admin: 05/06/21 20:40 Dose: Not Given Documented by: Ondansetron HCl (Ondansetron 4 Mg/2 Ml Sdv) 4 mg IV Q4H PRN PRN Reason: Nausea/Vomiting Pantoprazole Sodium (Pantoprazole 40 Mg Tab.Cr) 40 mg PO DAILY PRN PRN Reason: Indigestion Pentoxifylline (Pentoxifylline 400 Mg Tab.Er) 400 mg PO BID [facility] Last Admin: 05/07/21 10:12 Dose: 400 mg Documented by: Polyethylene Glycol (Polyethylene Glycol 3350 Powder 17 Gm Packet) 17 gm PO DAILY PRN PRN Reason: Constipation Potassium Chloride (Potassium Chloride 20 Meq Tab.Er) 40 meq PO ONETIME ONE Stop: 05/07/21 10:46 Senna (Sennosides 8.6 Mg Tab) 8.6 mg PO BID PRN PRN Reason: Constipation Sodium Chloride (Sodium Chloride 0.9% 10 Ml Syringe) 10 ml FLUSH ASDIRECTED PRN PRN Reason: Keep Vein Open Topiramate (Topiramate 25 Mg Tab) 25 mg PO DAILY [facility] Last Admin: 05/07/21 10:11 Dose: 25 mg Documented by: Discontinued Medications Dextrose/Water (50% Dextrose In Water 50 Ml Syringe) 50 ml IV ONETIME PRN PRN Reason: Hypoglycemia Enoxaparin Sodium (Enoxaparin 40 Mg/0.4 Ml Syringe) 40 mg SUBCUT DAILY [facility] Last Admin: 05/05/21 20:11 Dose: 40 mg Documented by: Furosemide (Furosemide 40 Mg/4 Ml Vial) 80 mg IVPUSH NOW ONE Stop: 05/05/21 17:46 Last Admin: 05/05/21 18:49 Dose: 80 mg Documented by: Furosemide 20 mg/ Furosemide (40 mg) 60 mg IV ONETIME ONE Stop: 05/06/21 10:51 Last Admin: 05/06/21 11:28 Dose: 60 mg Documented by: Furosemide 20 mg/ Furosemide (40 mg) 60 mg IV ONETIME ONE Stop: 05/06/21 21:01 Last Admin: 05/06/21 20:22 Dose: 60 mg Documented by: Furosemide (Furosemide 40 Mg/4 Ml Vial) 40 mg IVPUSH NOW ONE Stop: 05/07/21 08:31 Last Admin: 05/07/21 10:19 Dose: 40 mg Documented by: Ferric Sodium Gluconate Complex 250 mg/ Sodium Chloride 120 mls @ 30 mls/hr IV ONETIME ONE Stop: 05/06/21 13:59 Last Admin: 05/06/21 10:56 Dose: 30 mls/hr Documented by: Mometasone Furoate/Formoterol Fumar (Formoterol/Mometasone 200-5 Mcg 8.8 Gm Inhaler) 0 puff IH BID DANI Last Admin: 05/05/21 20:12 Dose: 2 puff Documented by: Potassium Chloride (Potassium Chloride 20 Meq Tab.Er) 40 meq PO ONETIME ONE Stop: 05/06/21 08:31 Last Admin: 05/06/21 09:43 Dose: 40 meq Documented by: Potassium Chloride (Potassium Chloride 20 Meq Tab.Er) 40 meq PO ONETIME ONE Stop: 05/06/21 17:01 Last Admin: 05/06/21 16:54 Dose: 40 meq Documented by: - Exam Quality Assessment: DVT Prophylaxis General: Alert, Oriented, Cooperative, No Acute Distress Lungs: Clear to Auscultation, Normal Respiratory Effort Cardiovascular: Regular Rate, Regular Rhythm, No Murmurs GI/Abdominal Exam: Soft, Non-Tender, No Organomegaly, No Distention - Patient Data Lab Results Last 24 hrs: Laboratory Results - last 24 hr 05/06/21 05/06/21 05/06/21 Range/Units 11:36 16:23 21:06 WBC (4.5-11.0) K/uL RBC (3.30-5.50) M/uL Hgb (12.0-15.0) g/dL Hct (36.0-48.0) % MCV (80-98) fL MCH (27-31) pg MCHC (32-36) % Plt Count (150-400) K/uL Neut % (Auto) (36-66) % Lymph % (Auto) (24-44) % Haines % (Auto) (2-6) % Eos % (Auto) (2-4) % Baso % (Auto) (0-1) % Sodium (140-148) mmol/L Potassium (3.6-5.2) mmol/L Chloride (100-108) mmol/L Carbon Dioxide (21-32) mmol/L Anion Gap (5.0-14.0) mmol/L BUN (7-18) mg/dL Creatinine (0.6-1.0) mg/dL Est Cr Clr Drug Dosing mL/min Estimated GFR (MDRD) (>60) Glucose (74-106) mg/dL POC Glucose 239 H 145 H 211 H (74-106) mg/dL Calcium (8.5-10.1) mg/dL 05/07/21 05/07/21 05/07/21 Range/Units 04:31 04:31 07:30 WBC 9.8 (4.5-11.0) K/uL RBC 2.96 L (3.30-5.50) M/uL Hgb 8.5 L (12.0-15.0) g/dL Hct 26.6 L (36.0-48.0) % MCV 90 (80-98) fL MCH 29 (27-31) pg MCHC 32 (32-36) % Plt Count 351 (150-400) K/uL Neut % (Auto) 66.2 H (36-66) % Lymph % (Auto) 21.5 L (24-44) % Haines % (Auto) 7.3 H (2-6) % Eos % (Auto) 4.7 H (2-4) % Baso % (Auto) 0.3 (0-1) % Sodium 138 L (140-148) mmol/L Potassium 3.8 (3.6-5.2) mmol/L Chloride 103 (100-108) mmol/L Carbon Dioxide 21 (21-32) mmol/L Anion Gap 17.8 H (5.0-14.0) mmol/L BUN 44 H (7-18) mg/dL Creatinine 1.5 H (0.6-1.0) mg/dL Est Cr Clr Drug Dosing 37.80 mL/min Estimated GFR (MDRD) 36 L (>60) Glucose 113 H (74-106) mg/dL POC Glucose 132 H (74-106) mg/dL Calcium 8.2 L (8.5-10.1) mg/dL Result Diagrams: 05/07/21 04:31 05/07/21 04:31 Sepsis Event Note - Evaluation Sepsis Screening Result: Possible Sepsis Risk - Focused Exam Vital Signs: Vital Signs Temp Pulse Pulse Resp BP BP Pulse Ox 05/07/21 10:11 80 118/55 L 05/07/21 07:25 96.1 F L 80 18 118/55 L 99 05/07/21 06:59 85 05/07/21 03:00 96.8 F L 91 18 115/54 L 96 05/06/21 22:42 98.5 F 102 H 18 115/54 L 93 L - Problem List Review Problem List Initiated/Reviewed/Updated: Yes - My Orders Last 24 Hours: My Active Orders 05/06/21 11:02 Consult to Physical Therapy [PT Evaluation and Treatment] [CONS] Routine 05/06/21 13:00 Gabapentin [Neurontin] 100 mg PO DAILY 05/06/21 16:52 OT Evaluation and Treatment [CONS] Routine 05/06/21 20:00 Enoxaparin [Lovenox] 40 mg SUBCUT Q24H 05/07/21 10:35 Potassium Chloride [Klor-Con M20] 40 meq PO ONETIME ONE 05/07/21 10:38 Sodium Ferric Gluconate Cmplex [Ferrlecit IV] 250 mg Sodium Chloride 0.9% [Normal Saline] 100 ml IV ONETIME 05/07/21 10:45 lisinopriL [Prinivil] 2.5 mg PO DAILY 05/07/21 11:30 GLUCOSE POC LAB TO COLLECT JPM [POC] QIDACANDBED 05/07/21 16:30 GLUCOSE POC LAB TO COLLECT JPM [POC] QIDACANDBED 05/07/21 20:00 Furosemide [Lasix] 40 mg IVPUSH NOW ONE 05/07/21 21:00 GLUCOSE POC LAB TO COLLECT JPM [POC] QIDACANDBED 05/08/21 07:30 GLUCOSE POC LAB TO COLLECT JPM [POC] QIDACANDBED 05/08/21 09:00 Furosemide [Lasix] 40 mg PO DAILY 05/08/21 11:30 GLUCOSE POC LAB TO COLLECT JPM [POC] QIDACANDBED 05/08/21 16:30 GLUCOSE POC LAB TO COLLECT JPM [POC] QIDACANDBED 05/08/21 21:00 GLUCOSE POC LAB TO COLLECT JPM [POC] QIDACANDBED 05/09/21 07:30 GLUCOSE POC LAB TO COLLECT JPM [POC] QIDACANDBED 05/09/21 11:30 GLUCOSE POC LAB TO COLLECT JPM [POC] QIDACANDBED 05/09/21 16:30 GLUCOSE POC LAB TO COLLECT JPM [POC] QIDACANDBED 05/09/21 21:00 GLUCOSE POC LAB TO COLLECT JPM [POC] QIDACANDBED 05/10/21 07:30 GLUCOSE POC LAB TO COLLECT JPM [POC] QIDACANDBED 05/10/21 11:30 GLUCOSE POC LAB TO COLLECT JPM [POC] DBED 05/10/21 16:30 GLUCOSE POC LAB TO COLLECT JPM [POC] DADBED 05/10/21 21:00 GLUCOSE POC LAB TO COLLECT JPM [POC] QIDACANDBED 05/11/21 07:30 GLUCOSE POC LAB TO COLLECT JPM [POC] QIDACANDBED 05/11/21 11:30 GLUCOSE POC LAB TO COLLECT JPM [POC] DACANDBED 05/11/21 16:30 GLUCOSE POC LAB TO COLLECT JPM [POC] DACANDB - Plan Plan:: ASSESSMENT AND PLAN ACUTE ON CHRONIC CONGESTIVE HEART FAILURE-most recently documented ejection fraction of 35%. Significantly improved from admission with less shortness of b reath -2 g sodium diet -Add lisinopril 2.5 mg p.o. daily -Continue beta-shameka therapy -Furosemide 40 mg IV twice today SEVERE ANEMIA-she is on anticoagulation with aspirin and Plavix. Denies recent history of obvious blood loss. Hemoglobin stable since transfusion with no evidence of active bleeding -IV iron infusion today -Recheck hemoglobin in a.m. HYPOXIC RESPIRATORY FAILURE-likely secondary to congestive heart failure exacerbation and underlying COPD. VQ scan obtained today shows no evidence of pulmonary emboli. -Supplemental oxygen as needed TYPE 2 DIABETES MELLITUS -Continue usual dose of long and short acting insulin -4 times daily glucometers -Moderate dose sliding scale Humalog CHRONIC KIDNEY DISEASE STAGE III -Closely monitor urine output and renal function ELEVATED D-DIMER-VQ scan obtained today shows no evidence of pulmonary embolism COPD-appears to be well compensated at this time -Continue outpatient medications -Nebulized albuterol and DuoNebs as needed CORONARY ARTERY DISEASE-status post non-ST segment elevation myocardial infarction approximately 1 month ago. Currently denies symptoms of chest pain or pressure, troponin level was within normal range -Continue outpatient medications MAINTENANCE ISSUES -DVT prophylaxis; Lovenox 40 mg subcu daily -GI prophylaxis; continue outpatient PPI therapy -Randall catheter; placed in the emergency department, will leave in at this time for monitoring of urine output -Nutrition; 2 g sodium diet -Nicotine dependence; nicotine patch and nicotine gum CODE STATUS-FULL CODE ADMISSION STATUS-patient will be admitted to inpatient status, expect at least a 2 night hospital stay for evaluation and management of problems as outlined above. At the time of this admission I do not reasonably expected evaluation and management of this problem will require more than a 96 hour hospital stay. DISPOSITION-anticipate discharge to home after the hospital stay.
[2021-05-07] MEDS ORDERED: Potassium Chloride 20 MEQ Tab.ER PO ONE (10:45)
[2021-05-07] MEDS ORDERED: Sodium Ferric Gluconate Cmplex 250 MG in Sodium Chloride 0.9% 100 ML IV ONE (11:30)
[2021-05-07] MEDS: Lisinopril 2.5 MG Tab PO SCH (12:15)
[2021-05-07] MEDS: Enoxaparin 40 MG/0.4 ML Syringe SUBCUT SCH (20:21)
[2021-05-07] MEDS: Amitriptyline 10 MG Tab PO SCH (21:55)
[2021-05-07] MEDS: atorvaSTATin 20 MG Tab PO SCH (21:56)
[2021-05-07] MEDS: Melatonin 3 MG Tab PO PRN (22:07)
[2021-05-07] MEDS: Mirtazapine 15 MG Tab PO PRN (22:07)
[2021-05-07] MEDS: Acetaminophen/HYDROcodone 325-5 MG Tab PO PRN (22:08)
[2021-05-07] MEDS: Gabapentin 100 MG Cap PO PRN (22:09)
[2021-05-08] MEDS: Albuterol/Ipratropium 3.0-0.5 MG/3 ML Neb Soln NEB SCH ×2 (07:14→10:46)
[2021-05-08] MEDS: Formoterol/Mometasone 200-5 MCG 8.8 GM Inhaler IH SCH (07:14)
[2021-05-08] MEDS: Topiramate 25 MG Tab PO SCH (08:28)
[2021-05-08] MEDS: Pentoxifylline 400 MG Tab.ER PO SCH (08:28)
[2021-05-08] MEDS: Clopidogrel 75 MG Tab PO SCH (08:29)
[2021-05-08] MEDS: Gabapentin 100 MG Cap PO SCH (08:29)
[2021-05-08] MEDS: Lisinopril 2.5 MG Tab PO SCH (08:29)
[2021-05-08] MEDS: Aspirin 81 MG Tab.EC PO SCH (08:29)
[2021-05-08] MEDS: Metoprolol Succinate 25 MG Tab.ER PO SCH (08:30)
[2021-05-08] MEDS: Nicotine 14 MG/24 Hr Patch TRDERM SCH (08:31)
[2021-05-08] MEDS: Insulin Glargine,Human Rec. Analog 100 Units/ML 3 ML Pen SUBCUT SCH (08:31)
[2021-05-08] MEDS: Insulin Lispro 100 Unit/ML 3 ML KwikPen SUBCUT SCH ×3 (08:32→12:16)
[2021-05-08] MEDS ORDERED: Furosemide 40 MG Tab PO SCH (09:00)
--- NOTE | 2021-05-08 10:26 | PCM.DCSUM1 ---
Discharge Summary - Hospital Course Brief History: Ms. Butler is a 61-year-old woman who was admitted as a direct admission from the emergency department in [facility] for management of acute hypoxic respiratory failure secondary to CHF exacerbation and severe anemia. - Discharge Data Discharge Date: 05/08/21 Discharge Disposition: Home, Self-Care 01 Condition: Fair - Referral to Home Health Primary Care Physician: PCP Unknown - Discharge Diagnosis/Problem(s) (1) Acute respiratory failure with hypoxia SNOMED Code(s): 51147629, 793186573 ICD Code: J96.01 - ACUTE RESPIRATORY FAILURE WITH HYPOXIA Status: Acute Current Visit: Yes (2) Anemia SNOMED Code(s): 209916832 ICD Code: D64.9 - ANEMIA, UNSPECIFIED Status: Acute Current Visit: Yes (3) SOB (shortness of breath) SNOMED Code(s): 386823824 ICD Code: R06.02 - SHORTNESS OF BREATH Status: Acute Current Visit: Yes (4) Recent non-ST elevation myocardial infarction (NSTEMI) SNOMED Code(s): 723991538 ICD Code: SZN2164 - Status: Chronic Current Visit: No (5) CKD (chronic kidney disease) SNOMED Code(s): 212898952 ICD Code: N18.9 - CHRONIC KIDNEY DISEASE, UNSPECIFIED Status: Chronic Current Visit: No (6) Type 2 diabetes mellitus SNOMED Code(s): 44512385 ICD Code: E11.9 - TYPE 2 DIABETES MELLITUS WITHOUT COMPLICATIONS Status: Chronic Current Visit: No (7) Chronic congestive heart failure SNOMED Code(s): 34072125 ICD Code: I50.9 - HEART FAILURE, UNSPECIFIED Status: Chronic Current Visit: No (8) COPD (chronic obstructive pulmonary disease) SNOMED Code(s): 28688202 ICD Code: J44.9 - CHRONIC OBSTRUCTIVE PULMONARY DISEASE, UNSPECIFIED Status: Chronic Current Visit: No - Patient Summary/Data Consults: Consultations 05/06/21 11:02 Consult to Physical Therapy [PT Evaluation and Treatment] [CONS] Routine Please Evaluate and Treat. PT Reason for Consult: weakness Special Instructions: zeyad REDMOND This query below is only for informational purposes and is not editable. Admission Diagnosis/Problem: CHF, Congestive heart failure 05/06/21 16:52 OT Evaluation and Treatment [CONS] Routine Please Evaluate and Treat. OT Reason for Consult: zeyad reynoso This query below is only for informational purposes and is not editable. Admission Diagnosis/Problem: CHF, Congestive heart failure Hospital Course: Ms. Butler is a 61-year-old woman who was admitted as a direct admission from the emergency department at the [facility] with shortness of breath and hypoxia secondary to congestive heart failure exacerbation. She has a very complicated past medical history and is status post recent non-ST segment elevation myocardial infarction 1 month ago, requiring angioplasty and stent placement. She is on aspirin and Plavix following that intervention. Over the past 2 days has developed progressive increase shortness of breath on evaluation in the emergency department chest x-ray shows evidence of pulmonary edema. She has known congestive heart failure with decreased ejection fraction estimated at 35%. She was also found to be very anemic with a hemoglobin of 6.3. She denies recent hematemesis, melena, hematochezia, and hematuria. Guaiac was obtained while in the emergency department and found to be negative. White blood cell count is within normal range and her troponin was normal. In addition to progressive shortness of breath she reports symptoms of PND and orthopnea. She has known longstanding type 2 diabetes mellitus and is status post bilateral [id number] amputations done for nonhealing ulcers with underlying peripheral arterial disease. She was transfused 2 units of red blood cells from the emergency department in [place]. She continues to report symptoms of shortness of breath. D-dimer was obtained while in the emergency department and was found to be elevated. She was not a candidate for CT scan with contrast because of her chronic kidney disease. On admission she was given IV furosemide and had a good diuresis through the night. Following this she reported significant improvement in her shortness of breath and was able to get off of supplemental oxygen. Over the next 2 days of her hospital stay she was given further IV diuretic therapy with good diuresis. At the time of discharge she denied any symptoms of shortness of breath PND or orthopnea. VQ scan was obtained on the day prior to discharge and showed no evidence of pulmonary embolism. She did experience episodes of hypotension during hospitalization and her nifedipine was discontinued. Low-dose lisinopril was added to her medical regimen at 2.5 mg p.o. daily. On discharge her dose of furosemide will be increased to 40 mg p.o. daily. Because of her diabetes glucose levels were monitored daily she was continued on her usual doses of insulin with additional sliding scale Humalog as needed. Activity will be as tolerated and she will remain on a diabetic low-sodium diet. Follow-up appointment will be scheduled with her primary care provider within 1 week. - Patient Instructions Diet: Low Sodium, Diabetic Diet Activity: As Tolerated Other/Special Instructions: Please schedule follow-up appointment with primary care provider within 1 week. - Discharge Plan *PRESCRIPTION DRUG MONITORING PROGRAM REVIEWED*: Not Applicable *COPY OF PRESCRIPTION DRUG MONITORING REPORT IN PATIENT [place]: Not Applicable Prescriptions/Med Rec: Furosemide [Lasix] 40 mg PO DAILY #30 tablet lisinopriL [Prinivil] 2.5 mg PO DAILY #30 tablet Home Medications: Home Meds Acetaminophen [Tylenol Extra Strength] 1,000 mg PO TID PRN 05/05/21 [History] Albuterol [Ventolin HFA] 2 puff .XX 6XDAY PRN 05/05/21 [History] Albuterol/Ipratropium [DuoNeb 3.0-0.5 MG/3 ML] 3 ml NEB Q6HR PRN 05/05/21 [History] Amitriptyline [Elavil] 20 mg PO BEDTIME 05/05/21 [History] Aspirin [Adult Low Dose Aspirin EC] 81 mg PO DAILY 05/05/21 [History] Budesonide/Formoterol Fumarate [Symbicort 160-4.5 Mcg Inhaler] 2 puff .XX BID 05/05/21 [History] Calcium Carbonate [Tums] 1,000 mg PO ASDIRECTED PRN 05/05/21 [History] Cholecalciferol (Vitamin D3) [Vitamin D3] 10 mcg PO DAILY 05/05/21 [History] Clopidogrel [Plavix] 75 mg PO DAILY 05/05/21 [History] DULoxetine [Cymbalta] 60 mg PO DAILY PRN 05/05/21 [History] Gabapentin [Neurontin] 200 mg PO BEDTIME PRN 05/05/21 [History] Insulin Aspart [Novolog Flexpen] 4 unit SUBCUT WITHMEALSANDBED 05/05/21 [History] Insulin Glarg,Human.Rec.Analog [Lantus Solostar] 35 unit SUBCUT BEDTIME 05/05/21 [History] Insulin Glarg,Human.Rec.Analog [Lantus Solostar] 40 unit SUBCUT ACBREAKFAST 05/05/21 [History] Loperamide HCl [Imodium A-D] 4 mg PO DAILY PRN 05/05/21 [History] Metoprolol Succinate [Toprol XL] 12.5 mg PO DAILY 05/05/21 [History] Pantoprazole Sodium [Protonix] 40 mg PO DAILY PRN 05/05/21 [History] Pentoxifylline [TRENtal] 400 mg PO BID 05/05/21 [History] Sennosides [Senna] 8.6 mg PO BID PRN 05/05/21 [History] Topiramate [Topamax] 25 mg PO DAILY 05/05/21 [History] atorvaSTATin Calcium [Lipitor] 40 mg PO BEDTIME 05/05/21 [History] Furosemide [Lasix] 40 mg PO DAILY #30 tablet 05/08/21 [Rx] lisinopriL [Prinivil] 2.5 mg PO DAILY #30 tablet 05/08/21 [Rx] Patient Handouts: Heart Failure, Self Care, [id number] - Discharge Summary/Plan Comment DC Time >30 min.: No Total # of Minutes for Discharge Time: 20 - Patient Data Vitals - Most Recent: Last Vital Signs Temp 96.4 F L 05/08/21 07:00 Pulse 80 05/08/21 08:30 Resp 18 05/08/21 07:00 BP 114/59 L 05/08/21 08:30 Pulse Ox 94 L 05/08/21 07:00 Weight - Most Recent: 142 lb 1.6 oz I&O - Last 24 hours: Intake & Output 05/07/21 05/08/21 05/08/21 22:59 06:59 14:59 Intake Total 290 800 800 Output Total 1950 350 Balance -1660 450 800 Lab Results - Last 24 hrs: Laboratory Results - last 24 hr 05/07/21 05/07/21 05/07/21 Range/Units 11:34 16:13 20:46 POC Glucose 206 H 124 H 106 (74-106) mg/dL 05/08/21 Range/Units 07:19 POC Glucose 94 (74-106) mg/dL Med Orders - Current: Current Medications Acetaminophen (Acetaminophen 325 Mg Tab) 650 mg PO Q4H PRN PRN Reason: Pain (Mild 1-3)/fever Last Admin: 05/05/21 23:03 Dose: 650 mg Documented by: Hydrocodone Bitart/Acetaminophen (Acetaminophen/Hydrocodone 325-5 Mg Tab) 1 - 2 tab PO Q4H PRN PRN Reason: Pain Last Admin: 05/07/21 22:08 Dose: 2 tab Documented by: Albuterol (Albuterol 0.083% 2.5 Mg/3 Ml Neb Soln) 2.5 mg NEB Q4H PRN PRN Reason: Shortness Of Breath/wheezing Last Admin: 05/06/21 12:46 Dose: 2.5 mg Documented by: Albuterol/Ipratropium (Albuterol/Ipratropium 3.0-0.5 Mg/3 Ml Neb Soln) 3 ml NEB QIDRT [facility] Last Admin: 05/08/21 07:14 Dose: 3 ml Documented by: Amitriptyline HCl (Amitriptyline 10 Mg Tab) 20 mg PO BEDTIME [facility] Last Admin: 05/07/21 21:55 Dose: 20 mg Documented by: Aspirin (Aspirin 81 Mg Tab.Ec) 81 mg PO DAILY [facility] Last Admin: 05/08/21 08:29 Dose: 81 mg Documented by: Atorvastatin Calcium (Atorvastatin 20 Mg Tab) 40 mg PO BEDTIME [facility] Last Admin: 05/07/21 21:56 Dose: 40 mg Documented by: Clopidogrel Bisulfate (Clopidogrel 75 Mg Tab) 75 mg PO DAILY [facility] Last Admin: 05/08/21 08:29 Dose: 75 mg Documented by: Dextrose (Glucose Gel 15 Gm In 37.5 Gm Tube) 15 gm PO ONETIME PRN PRN Reason: Hypoglycemia Dextrose/Water (50% Dextrose In Water 50 Ml Syringe) 50 ml IVPUSH ASDIRECTED PRN PRN Reason: Hypoglycemia Duloxetine HCl (Duloxetine 30 Mg Cap) 60 mg PO DAILY PRN PRN Reason: Pain Enoxaparin Sodium (Enoxaparin 40 Mg/0.4 Ml Syringe) 40 mg SUBCUT Q24H [facility] Last Admin: 05/07/21 20:21 Dose: 40 mg Documented by: Furosemide (Furosemide 40 Mg Tab) 40 mg PO DAILY [facility] Last Admin: 05/08/21 08:29 Dose: 40 mg Documented by: Gabapentin (Gabapentin 100 Mg Cap) 200 mg PO BEDTIME PRN PRN Reason: neuropathy Last Admin: 05/07/21 22:09 Dose: 200 mg Documented by: Gabapentin (Gabapentin 100 Mg Cap) 100 mg PO DAILY [facility] Last Admin: 05/08/21 08:29 Dose: 100 mg Documented by: Glucagon (Glucagon,Human Recombinant 1 Mg Vial) 1 mg IM ASDIRECTED PRN PRN Reason: Hypoglycemia Insulin Glargine (Insulin Glargine,Human Rec. Analog 100 Units/Ml 3 Ml Pen) 35 units SUBCUT BEDTIME [facility] Last Admin: 05/07/21 21:54 Dose: 35 units Documented by: Insulin Glargine (Insulin Glargine,Human Rec. Analog 100 Units/Ml 3 Ml Pen) 40 units SUBCUT ACBREAKFAST [facility] Last Admin: 05/08/21 08:31 Dose: 40 units Documented by: Insulin Human Lispro (Insulin Lispro 100 Unit/Ml 3 Ml Kwikpen) 0 unit SUBCUT QIDACANDBED [facility]; Protocol Last Admin: 05/08/21 08:39 Dose: Not Given Documented by: Insulin Human Lispro (Insulin Lispro 100 Unit/Ml 3 Ml Kwikpen) 4 unit SUBCUT WITHMEALSANDBED [facility] Last Admin: 05/08/21 08:32 Dose: 4 units Documented by: Lisinopril (Lisinopril 2.5 Mg Tab) 2.5 mg PO DAILY [facility] Last Admin: 05/08/21 08:29 Dose: 2.5 mg Documented by: Melatonin (Melatonin 3 Mg Tab) 6 mg PO BEDTIME PRN PRN Reason: Sleep Last Admin: 05/07/21 22:07 Dose: 6 mg Documented by: Metoprolol Succinate (Metoprolol Succinate 25 Mg Tab.Er) 12.5 mg PO DAILY [facility] Last Admin: 05/08/21 08:30 Dose: 12.5 mg Documented by: Mirtazapine (Mirtazapine 15 Mg Tab) 15 mg PO BEDTIME PRN PRN Reason: Anxiety Last Admin: 05/07/21 22:07 Dose: 15 mg Documented by: Mometasone Furoate/Formoterol Fumar (Formoterol/Mometasone 200-5 Mcg 8.8 Gm Inhaler) 0 puff IH BIDRT [facility] Last Admin: 05/08/21 07:14 Dose: 2 inhalation Documented by: Nicotine (Nicotine 14 Mg/24 Hr Patch) 14 mg TRDERM DAILY [facility] Last Admin: 05/08/21 08:31 Dose: 14 mg Documented by: Nicotine Polacrilex (Nicotine Polacrilex 2 Mg Gum) 2 mg CHEW Q1H PRN PRN Reason: Other Ondansetron HCl (Ondansetron 4 Mg/2 Ml Sdv) 4 mg IV Q4H PRN PRN Reason: Nausea/Vomiting Pantoprazole Sodium (Pantoprazole 40 Mg Tab.Cr) 40 mg PO DAILY PRN PRN Reason: Indigestion Pentoxifylline (Pentoxifylline 400 Mg Tab.Er) 400 mg PO BID [facility] Last Admin: 05/08/21 08:28 Dose: 400 mg Documented by: Polyethylene Glycol (Polyethylene Glycol 3350 Powder 17 Gm Packet) 17 gm PO DAILY PRN PRN Reason: Constipation Senna (Sennosides 8.6 Mg Tab) 8.6 mg PO BID PRN PRN Reason: Constipation Sodium Chloride (Sodium Chloride 0.9% 10 Ml Syringe) 10 ml FLUSH ASDIRECTED PRN PRN Reason: Keep Vein Open Topiramate (Topiramate 25 Mg Tab) 25 mg PO DAILY [facility] Last Admin: 05/08/21 08:28 Dose: 25 mg Documented by: Discontinued Medications Dextrose/Water (50% Dextrose In Water 50 Ml Syringe) 50 ml IV ONETIME PRN PRN Reason: Hypoglycemia Enoxaparin Sodium (Enoxaparin 40 Mg/0.4 Ml Syringe) 40 mg SUBCUT DAILY [facility] Last Admin: 05/05/21 20:11 Dose: 40 mg Documented by: Furosemide (Furosemide 40 Mg/4 Ml Vial) 80 mg IVPUSH NOW ONE Stop: 05/05/21 17:46 Last Admin: 05/05/21 18:49 Dose: 80 mg Documented by: Furosemide 20 mg/ Furosemide (40 mg) 60 mg IV ONETIME ONE Stop: 05/06/21 10:51 Last Admin: 05/06/21 11:28 Dose: 60 mg Documented by: Furosemide 20 mg/ Furosemide (40 mg) 60 mg IV ONETIME ONE Stop: 05/06/21 21:01 Last Admin: 05/06/21 20:22 Dose: 60 mg Documented by: Furosemide (Furosemide 40 Mg/4 Ml Vial) 40 mg IVPUSH NOW ONE Stop: 05/07/21 08:31 Last Admin: 05/07/21 10:19 Dose: 40 mg Documented by: Furosemide (Furosemide 40 Mg/4 Ml Vial) 40 mg IVPUSH NOW ONE Stop: 05/07/21 20:01 Last Admin: 05/07/21 20:20 Dose: 40 mg Documented by: Ferric Sodium Gluconate Complex 250 mg/ Sodium Chloride 120 mls @ 30 mls/hr IV ONETIME ONE Stop: 05/06/21 13:59 Last Admin: 05/06/21 10:56 Dose: 30 mls/hr Documented by: Ferric Sodium Gluconate Complex 250 mg/ Sodium Chloride 120 mls @ 30 mls/hr IV ONETIME ONE Stop: 05/07/21 15:29 Last Admin: 05/07/21 12:16 Dose: 30 mls/hr Documented by: Mometasone Furoate/Formoterol Fumar (Formoterol/Mometasone 200-5 Mcg 8.8 Gm Inhaler) 0 puff IH BID [facility] Last Admin: 05/05/21 20:12 Dose: 2 puff Documented by: Nifedipine (Nifedipine 30 Mg Tab.Er) 30 mg PO BEDTIME [facility] Last Admin: 05/06/21 20:40 Dose: Not Given Documented by: Potassium Chloride (Potassium Chloride 20 Meq Tab.Er) 40 meq PO ONETIME ONE Stop: 05/06/21 08:31 Last Admin: 05/06/21 09:43 Dose: 40 meq Documented by: Potassium Chloride (Potassium Chloride 20 Meq Tab.Er) 40 meq PO ONETIME ONE Stop: 05/06/21 17:01 Last Admin: 05/06/21 16:54 Dose: 40 meq Documented by: Potassium Chloride (Potassium Chloride 20 Meq Tab.Er) 40 meq PO ONETIME ONE Stop: 05/07/21 10:46 Last Admin: 05/07/21 12:21 Dose: 40 meq Documented by: - Exam General: Reports: Alert, Oriented, Cooperative, No Acute Distress Lungs: Reports: Clear to Auscultation, Normal Respiratory Effort, Decreased Breath Sounds Cardiovascular: Reports: Regular Rate, Regular Rhythm, No Murmurs GI/Abdominal Exam: Soft, Non-Tender, No Organomegaly, No Distention Extremities: Other (Status post bilateral [id number] amputations) *Q Meaningful Use (DIS) - VTE *Q VTE Mechanical Contraindications *Q: Bilateral Lower Amputee VTE Pharmacological Contraindications *Q: High INR Value
== END 2021-05-08 13:21 | disposition home or self-care (01) | DRG 291 ==
LOC: JP.MS 17:30 → OBSVTOIN 17:40 → JP.MS 17:40
PROVIDERS: ADMIT Hospitalist; ATTEND Hospitalist
DX: I50.9 Heart failure, unspecified (principal); J96.01 Acute respiratory failure with hypoxia; J44.1 Chronic obstructive pulmonary disease with (acute) exacerbation; D64.9 Anemia, unspecified; I25.2 Old myocardial infarction; E11.22 Type 2 diabetes mellitus with diabetic chronic kidney disease; E11.51 Type 2 diabetes mellitus with diabetic peripheral angiopathy without gangrene; I25.10 Atherosclerotic heart disease of native coronary artery without angina pectoris; Z79.4 Long term (current) use of insulin; Z91.040 Latex allergy status; Z95.5 Presence of coronary angioplasty implant and graft; Z79.82 Long term (current) use of aspirin; Z79.02 Long term (current) use of antithrombotics/antiplatelets; Z89.612 Acquired absence of left leg above knee; Z89.611 Acquired absence of right leg above knee; Z91.018 Allergy to other foods; Z91.030 Bee allergy status; Z79.01 Long term (current) use of anticoagulants; N18.30 Chronic kidney disease, stage 3 unspecified; R79.1 Abnormal coagulation profile
CPT/HCPCS: 36415; 78582; 78582-26; 80048; 80053; 82607; 82746; 82947; 83550; 83615; 83735; 85025; 85045; 94640; 97110-GP; 97162-GP; 97165-GO; A9270-GY; A9539; A9540; J1650; J1815; J1815-GY; J1940; J2916; J7620-GY